=== PATIENT | female | born 1950 | race Caucasian/White ===

== ENCOUNTER 2024-09-06 18:02 | Emergency (ER) | payer MEDICARE, OTHER ==
[~2024-09-06] VITALS: Ht 165.1 cm; Wt 99.8 kg
[2024-09-06] MEDS ORDERED: DIVA500T4 PO (19:00)
[2024-09-06] MEDS ORDERED: CALC215T8 PO (19:00)
[2024-09-06] MEDS ORDERED: NAPR-1196 PO (19:00)
[2024-09-06] MEDS ORDERED: HYDR-4077 PO (19:00)
[2024-09-06] MEDS ORDERED: CLON1TAB12 PO (19:00)
[2024-09-06] MEDS ORDERED: LIDO30AD10 TP (19:00)
[2024-09-06] MEDS ORDERED: FLUO10CA26 PO (19:00)
[2024-09-06] MEDS ORDERED: OLAN5TAB3 PO (19:00)
[2024-09-06] MEDS ORDERED: GUAI-1197 PO (19:00)
[2024-09-06] MEDS ORDERED: LORA0.5T48 PO (19:00)
[2024-09-06] MEDS ORDERED: BUSP10TA3 PO (19:00)
[2024-09-06] MEDS ORDERED: MAGN400O6 PO (19:00)
[2024-09-06] MEDS ORDERED: MEDR2.5T PO (19:00)
[2024-09-06] MEDS ORDERED: [UNRECOGNIZED DRUG - CODE] PO (19:00)
[2024-09-06] MEDS ORDERED: GUAI-1105 PO (19:00)
[2024-09-06] MEDS ORDERED: ACET-3117 PO (19:00)
[2024-09-06] MEDS ORDERED: DICL100G31 TP (19:00)
[2024-09-06] MEDS ORDERED: ESTR1TAB17 PO (19:00)
[2024-09-06] MEDS ORDERED: CYCL5TAB PO (19:00)
[2024-09-06] MEDS ORDERED: DIPH-1062 PO (19:00)
[2024-09-06] MEDS ORDERED: IPRATROPIUM BROMIDE 0.5 MG/2.5 ML NEBU ONE (19:03)
[2024-09-06] MEDS ORDERED: ALBUTEROL SULFATE 2.5 MG/3 ML NEBU ONE ×2 (19:03→19:33)
[2024-09-06 19:10] VITALS: O2SAT 96
[2024-09-06] MEDS: ALBUTEROL SULFATE 2.5 MG/3 ML NEBU NEB ONE ×4 (19:15→20:16)
[2024-09-06 19:21] LABS: BASOPHILS % (AUTO) 0.6 % (0.0-2.0); EOSINOPHILS # (AUTO) 0.2 K/uL (0.0-0.7); EOSINOPHILS % (AUTO) 3.3 % (0.0-7.0); HEMATOCRIT 38.4 % (31.2-41.9); HEMOGLOBIN 12.2 g/dL (10.9-14.3); LYMPHOCYTES # (AUTO) 1.3 K/uL (0.8-4.8); LYMPHOCYTES % (AUTO) 22.4 % (20.5-51.5); MEAN CORPUSCULAR HEMOGLOBIN 26.3 uug (24.7-32.8); MEAN CORPUSCULAR HGB CONC 32 g/dL (32.3-35.6); MEAN CORPUSCULAR VOLUME 82.5 fL (75.5-95.3); MONOCYTES # (AUTO) 0.7 K/uL (0.1-1.30); MONOCYTES % (AUTO) 11.7 % (0.0-11.0); NEUTROPHILS # (AUTO) 3.7 K/uL (1.8-8.9); PLATELET COUNT (AUTO) 281 K/uL (179-408); RED BLOOD CELL COUNT(AUTO) 4.65 MIL/uL (3.63-4.92); RED CELL DISTRIBUTION WIDTH 14.6 % (12.3-17.7)
[2024-09-06 19:25] VITALS: O2SAT 98
[2024-09-06 19:28] LABS: DIFFERENTIAL COMMENT 1
[2024-09-06 19:30] VITALS: O2SAT 97
[2024-09-06] MEDS ORDERED: TDAP DIPH,PERTUSS,TET VAC/PF 0.5 ML DISP.SYRIN IM ONE (19:37)
[2024-09-06] MEDS: TDAP DIPH,PERTUSS,TET VAC/PF 0.5 ML DISP.SYRIN IM ONE (19:40)
[2024-09-06] MEDS: IV NORMAL SALINE 1000 ML BAG IV ONE (19:40)
[2024-09-06 19:46] LABS: CALCIUM 8.6 mg/dL (8.5-10.1); CARBON DIOXIDE 26 mmol/L (21-32); CHLORIDE 106 mmol/L (98-107); CREATININE 0.9 mg/dL (0.6-1.3); GLUCOSE 111 mg/dL (74-106); POTASSIUM 4.1 mmol/L (3.5-5.1); SODIUM SERUM 141 mmol/L (136-145); UREA NITROGEN, BLOOD 20 mg/dL (7-18)
[2024-09-06 19:51] LABS: ALANINE AMINOTRANSFERASE 17 U/L (14-59); ALBUMIN 3.1 g/dL (3.4-5.0); ALKALINE PHOSPHATASE 79 U/L (50-136); ASPARTATE AMINOTRANSFERASE 14 U/L (15-37); BILIRUBIN,TOTAL 0.5 mg/dL (0.2-1.0); NT-PRO BNP 134 pg/mL (0-125); TOTAL PROTEIN, SERUM 6.6 g/dL (6.4-8.2)
[2024-09-06 20:17] LABS: BILIRUBIN,DIRECT 0.1 mg/dL (0.0-0.2)
[2024-09-06] MEDS ORDERED: ONDANSETRON ODT 4 MG TAB.RAPDIS ONE (20:18)
[2024-09-06] MEDS ORDERED: CLONAZEPAM 0.5 MG TABLET ONE (20:18)
[2024-09-06] MEDS ORDERED: HYDROCODONE/APAP 5-325MG TABLET ONE (20:19)
[2024-09-06] MEDS: ONDANSETRON ODT 4 MG TAB.RAPDIS SL ONE (20:20)
[2024-09-06 20:24] VITALS: O2SAT 99
[2024-09-06] MEDS: CLONAZEPAM 0.5 MG TABLET PO ONE (20:24)
[2024-09-06] MEDS: HYDROCODONE/APAP 5-325MG TABLET PO ONE (20:25)
[2024-09-06 23:11] VITALS: BP 150/92; TEMP 98.3; O2SAT 95
== END 2024-09-06 23:00 | disposition home or self-care (01) ==
LOC: ER 18:02
DX: S80.01XA Contusion of right knee, initial encounter (principal); E66.9 Obesity, unspecified; R51.9 Headache, unspecified; F03.94 Unspecified dementia, unspecified severity, with anxiety; I11.9 Hypertensive heart disease without heart failure; J45.909 Unspecified asthma, uncomplicated; Z79.1 Long term (current) use of non-steroidal anti-inflammatories (NSAID); Z68.36 Body mass index [BMI] 36.0-36.9, adult; Z79.899 Other long term (current) drug therapy; Z20.822 Contact with and (suspected) exposure to COVID-19; W22.8XXA Striking against or struck by other objects, initial encounter; Y93.89 Activity, other specified; Y92.89 Other specified places as the place of occurrence of the external cause; Y99.8 Other external cause status
CPT/HCPCS: 29505; 36415; 70450; 71045; 73564; 80048; 80076; 83880; 84484; 85025; 85379; 87426; 90471; 90715; 93005; 94644; 96360; 96361; 99285; J7040; A4606; A4663; J3590; Q0162